=== PATIENT | female | born 1945 | race Caucasian/White ===

== ENCOUNTER 2019-07-11 07:39 | Outpatient (CLI) | payer MEDICARE, SELFPAY ==
[2019-07-11 07:56] LABS: Appearance Urine Clear (Clear); Bilirubin Urine Negative (Negative); Color Urine Yellow (Yellow); Glucose Urine UA Negative (Negative); Ketones Urine Negative (Negative); Leukocyte Esterase Ur Trace (Negative); Nitrate Urine Negative (Negative); Protein Urine Negative (Negative); Specific Grav Ur 1.015 (1.010-1.020); Urobilinogen Urine 0.2 mg/dL (0.2-1.0); pH Urine 6.5 (5.0-8.0)
[2019-07-11 08:02] LABS: Add Urine Microscopic? YES; Blood Urine Trace-lysed (Negative); RBC Urine 0-2 /hpf (0-2); WBC Urine 0-3 /hpf (0-3)
[2019-07-11 08:03] LABS: Bacteria Urine Trace /hpf; Squamous Epithelial Cell Urine Rare /hpf (Few)
[2019-07-11 08:04] LABS: Basophils Absolute Auto 0.08 K/mm3 (0.00-0.10); Basophils Percent Auto 1.1 % (0.0-1.0); Eosinophils Absolute Auto 0.35 K/mm3 (0.02-0.50); Eosinophils Percent Auto 4.9 % (1.0-6.0); Hematocrit 42.1 % (35.0-42.0); Hemoglobin 13.9 g/dL (11.7-13.8); Immature Granulocyte Absolute 0.02 K/mm3 (0.00-0.00); Immature Granulocyte Percent A 0.3 % (0.0-0.0); Lymphocytes Absolute Auto 2.28 K/mm3 (1.10-4.50); Lymphocytes Percent Auto 31.7 % (18.0-42.0); Mean Corpuscular Hemoglobin 31.2 pg (27.0-31.0); Mean Corpuscular Volume 94.4 fL (78.0-102.0); Mean Platelet Volume 11.2 fl (9.2-11.8); Monocytes Absolute Auto 0.41 K/mm3 (0.10-0.90); Monocytes Percent Auto 5.7 % (2.0-11.0); Neutrophils Absolute Auto 4.1 K/mm3 (1.7-7.2); Neutrophils Percent Auto 56.3 % (50.0-70.0); Platelet Count Result 276 K/mm3 (150-420); Red Blood Count 4.46 M/mm3 (4.20-5.40); White Blood Count 7.2 K/mm3 (4.8-10.8)
[2019-07-11 08:28] LABS: Alanine Aminotransferase 23 U/L (14-59); Albumin Level 3.5 g/dL (3.4-5.0); Alkaline Phosphatase 63 U/L (46-116); Amylase 80 U/L (25-115); Anion Gap 11.3 mmol/L (7-16); Aspartate Amino Transferase 19 U/L (15-37); Bilirubin,Total 0.5 mg/dL (0.00-1.00); Blood Urea Nitrogen 13 mg/dL (7-18); Calcium 9.2 mg/dL (8.5-10.1); Carbon Dioxide 32 mmol/L (21-32); Chloride 105 mmol/L (98-108); Cholesterol 192 mg/dL (0-200); Estimated Glomerular Filt Rate > 60; Glucose 95 mg/dL (70-99); HDL Direct 97 mg/dL (40-60); LDL Cholesterol Calculated 84 mg/dL (<130); Lipase 220 U/L (73-393); Osmolality Calculated 298 mOsm/kg (285-295); Potassium 4.3 mmol/L (3.5-5.1); Sodium 144 mmol/L (136-145); Thyroid Stimulating Hormone 1.41 uIU/mL (0.36-3.74); Triglycerides 54 mg/dL (0-150)
== END 2019-07-11 07:40 | disposition home or self-care (01) ==
PROVIDERS: PCP Internal Medicine; Visit Provider Internal Medicine
DX: R11.0 Nausea (principal); R10.9 Unspecified abdominal pain; E78.5 Hyperlipidemia, unspecified
CPT/HCPCS: 36415; 80053; 80061; 81001; 82150; 83690; 84443; 85025

== ENCOUNTER 2019-10-13 12:38 | Outpatient (CLI) | payer MEDICARE, OTHER, SELFPAY ==
--- NOTE | ~2019-10-13 | MM_ITS ---
EXAMINATION: MM screening trae BI w jace HISTORY: Screening mammogram TECHNIQUE: Craniocaudal and mediolateral oblique 3-D tomosynthesis images were obtained and synthetic 2-D images were generated. CAD analysis was submitted and interpreted. COMPARISON: 04/18/2018, 03/08/2017, 02/28/2016 bilateral digital screening mammogram examinations BREAST PARENCHYMAL COMPOSITION: The breasts are extremely dense, which lowers the sensitivity of mamm ography. FINDINGS: There is suggestion of some asymmetry and possible architectural distortion in the mid to u pper right breast on MLO view. Diagnostic right mammogram and right breast ultrasound examination are recommended. Otherwise there is no evidence of suspicious mass, calcification, or architectural distortion to sugg est malignancy in either breast. There has been no other suspicious interval change. IMPRESSION: 1. Possible architectural distortion in the mid to upper right breast on MLO view 2. Diagnostic right mammogram and right breast ultrasound examination are recommended. BI-RADS Category 0: Incomplete: Needs additional imaging evaluation. Reviewed, dictated and finalized at location A. IMPRESSION: 1. Possible architectural distortion in the mid to upper right breast on MLO vi ew 2. Diagnostic right mammogram and right breast ultrasound examination are recom mended. BI-RADS Category 0: Incomplete: Needs additional imaging evaluation.
--- NOTE | ~2019-10-13 | DEXA_ITS ---
BMD(1) Young-Adult(2) Age-Matched(3) Region (g/cm2) T-score Z-score WHO Classification L1 0.745 -3.2 -1.1 Osteoporosis L2 0.849 -3.0 -0.8 Osteoporosis L3 1.020 -1.6 0.6 Osteopenia L4 1.017 -1.6 0.6 Osteopenia L1-L4 0.923 -2.2 -0.1 Osteopenia Trend: L1-L4 Change vs Change vs Measured Age BMD(1) Baseline Previous Date ([age]) (g/cm2) (%) (%) 10[age]13/2019 [age] 0[age]923 10.4* 10.4* [birth year]2007 [age] 0[age]836 baseline - * - Indicates significant change based on 95% confidence interval. 1 - Statistically 68% of repeat scans fall within 1SD (+- 0.010 g/cm2 for AP Spine L1-L4) 2 - [place] (Combined NHANES (ages 20-30) / [place] (ages 20-40)) AP Spine Reference Population (v112) 3 - Matched for Age, Weight (females 25-100 kg), Ethnic 11 - World Health Organization - Definition of Osteoporosis and Osteopenia for Women: Normal = T-score at or above -1.0 SD; Osteopenia = T-score between -1.0 and -2.5 SD; Osteoporosis = T-score at or below -2.5 SD; (WHO definitions only apply when a young healthy Women reference database is used to determine T-scores.) Printed: 10/16/2019 9:31:21 AM (13.60)76:3.00:50.00:12.0 0.00:10.62 0.60x1.05 18.4:%Fat=19.3% 0.00:0.00 0.00:0.00 Filename: [email or web address] Scan Mode: Standard;[employer]can 37.0 [employer] [id number] BMD(1) Young-Adult(2,7) Age-Matched(3) Region (g/cm2) T-score Z-score WHO Classification Neck Left 0.699 -2.4 -0.3 Osteopenia Right 0.769 -1.9 0.2 Osteopenia Mean 0.734 -2.2 -0.1 Osteopenia Difference 0.071 0.5 0.5 - Total Left 0.748 -2.1 -0.1 Osteopenia Right 0.751 -2.0 -0.1 Osteopenia Mean 0.750 -2.0 -0.1 Osteopenia Difference 0.003 0.0 0.0 - Hip [place] Length Comparison (mm) (Right = 100.1 mm) (Mean = 101.7 mm) (Left = 100.9 mm) Trend: Total Mean Change vs Change vs Measured Age BMD(1) Baseline Previous Date (years) (g/cm2) (%) (%) 10[age]13/2019 [age] 0.750 2.3 2.3 [birth year]2007 61.3 0.733 baseline - 1 - Statistically 68% of repeat scans fall within 1SD (+- 0.010 g/cm2 for DualFemur Total) 2 - [place] (Combined NHANES (ages 20-30) / [place] (ages 20-40)) Femur Reference Population (v112) 3 - Matched for Age, Weight (females 25-100 kg), Ethnic 7 - DualFemur Total T-score difference is 0.0. Asymmetry is None. 11 - World Health Organization - Definition of Osteoporosis and Osteopenia for Women: Normal = T-score at or above -1.0 SD; Osteopenia = T-score between -1.0 and -2.5 SD; Osteoporosis = T-score at or below -2.5 SD; (WHO definitions only apply when a young healthy Women reference database is used to determine T-scores.) Printed: 10/16/2019 9:31:21 AM (13.60); Filename: [email or web address].dfx; Right Femur; 16.1:%Fat=33.2%; Neck Angle (deg)= 69; Scan Mode: Standard 37.0 uGy; Left Femur; 15.3:%Fat=33.6%; Neck Angle (deg)= 66; Scan Mode: Standard 37.0 uGy [employer] [id number] Dear Nick Zelaya, Your patient Marina Hernandez completed a BMD test on 10/13/2019 using the [employer] DXA System (analysis version: 13.60) manufactured by [employer]. The following summarizes the results of our evaluation. PATIENT BIOGRAPHICAL: Name: Marina Hernandez
== END 2019-10-13 12:39 | disposition home or self-care (01) ==
LOC: CHSIMG 12:39
PROVIDERS: PCP Internal Medicine; Visit Provider Internal Medicine
DX: Z12.31 Encounter for screening mammogram for malignant neoplasm of breast (principal); Z13.820 Encounter for screening for osteoporosis; Z78.0 Asymptomatic menopausal state
CPT/HCPCS: 77063; 77067; 77080

== ENCOUNTER 2019-10-20 09:45 | Outpatient (CLI) | payer MEDICARE, OTHER, SELFPAY ==
--- NOTE | ~2019-10-20 | MMUS_ITS ---
EXAMINATION: MM diagnostic trae RT w jace, US breast RT limited HISTORY: Possible right breast architectural distortion on screening mammogram TECHNIQUE: Additional 3-D tomosynthesis images of the right breast were performed and synthetic 2-D i mages were generated. CAD analysis was submitted and interpreted. High resolution limited right breas t ultrasound was performed. COMPARISON: 10/13/2019, 04/18/2018, 03/08/2017, 02/28/2016 FINDINGS: MAMMOGRAPHIC FINDINGS: No persistent architectural distortion is identified with spot compression of the right breast. ULTRASOUND: A hypoechoic mass with central echogenicity at the 10:00 location 5 cm from the nipple has the appear ance of an intramammary lymph node. There is a 5 mm cyst at the 12:00 location 1 cm from the nipple. IMPRESSION: 1. No mammographic or sonographic evidence of malignancy. 2. Recommend routine screening mammography in one year. BI-RADS Category 2: Benign finding(s). Reviewed, dictated and finalized at location A. IMPRESSION: 1. No mammographic or sonographic evidence of malignancy. 2. Recommend routine screening mammography in one year. BI-RADS Category 2: Benign finding(s).
== END 2019-10-20 09:46 | disposition home or self-care (01) ==
PROVIDERS: PCP Internal Medicine; Visit Provider Internal Medicine
DX: R92.8 Other abnormal and inconclusive findings on diagnostic imaging of breast (principal)
CPT/HCPCS: 76642; 77061; 77065; G0279

== ENCOUNTER 2020-01-20 01:00 | Outpatient (CLI) | payer MEDICARE, OTHER, SELFPAY ==
[2020-01-20 18:32] LABS: SARS-CoV-2 RNA PCR Negative
== END 2020-01-20 01:01 | disposition home or self-care (01) ==
LOC: ANHCOVIDDT 01:00
PROVIDERS: PCP Internal Medicine; Visit Provider Internal Medicine Gastroenterology
DX: Z01.812 Encounter for preprocedural laboratory examination (principal); Z20.828 Contact with and (suspected) exposure to other viral communicable diseases
CPT/HCPCS: 87635; C9803; U0003

== ENCOUNTER 2020-01-24 02:31 | Day surgery (SDC) | payer MEDICARE, OTHER, SELFPAY ==
[2020-01-15 12:55] VITALS: BMI 21.8
[2020-01-24 11:09] VITALS: BP 138/91; PULSE 98; RESP 18; TEMP 36.8; O2SAT 100
[2020-01-24] MEDS: LACTATED RINGERS 1,000 ML 150 ML IV CONT (11:19)
--- NOTE | 2020-01-24 11:38 | WPDANESEPPF ---
Anes - Initial Pre Proc Eval Procedure: Operation Date: 01/24/20 12:30 Proposed Procedures p Screening Colonoscopy - Delfin Wallace DO Date/Time: 01/24/20 11:38 Surgeon: Delfin Wallace DO Pre Op Diagnosis: hx of colon polyps Patient Data Age: 74 Gender: F Height: 5 ft 1 in Weight: 51.2 kg Last Vital Signs Temp 98.2 F 01/24/20 11:09 Pulse 98 01/24/20 11:09 Resp 18 01/24/20 11:09 BP 138/91 H 01/24/20 11:09 Pulse Ox 100 01/24/20 11:09 Allergies Allergy/AdvReac Type Severity Reaction Status Date / Time adhesive Allergy Mild SKIN Verified 01/24/20 11:06 BLISTERS Sulfa (Sulfonamide Allergy Unknown Hives Verified 01/24/20 11:06 Antibiotics) Home Medications Medication Instructions Recorded Confirmed Type atorvastatin 10 mg PO DAILY 01/15/20 01/24/20 History cyclosporine [Restasis] 1 drp OPHTHALMIC (EYE) BID 01/15/20 01/15/20 History vitamin D3-vitamin K2 1 tab-cap PO DAILY 01/15/20 01/15/20 History Patient hx anesthesia problems: none Family hx anesthesia problems: none PMFSH Past Medical History Medical History (Updated 01/24/20 @ 11:37 by Isma Morales MD) Arthritis GERD (gastroesophageal reflux disease) Hyperlipidemia Family History Family History (Updated 07/15/15 @ 11:59 by DOCTOR UNKNOWN) Other Cerebrovascular accident Diabetes mellitus Family history of malignant neoplasm Hypertension Social History Social History Smoking status: Never smoker Smokeless tobacco user: other Alcohol intake: former Substance use: unknown Substance use type: unknown Living arrangements: with family Spiritual care concerns: No Anes - Eval Final PreProcedure Day of Procedure 01/24/20 11:38 Informed Consent: The patient's anesthetic plan and its attendant risks and benefits were discussed with the patient/family/POA. Questions were solicited and answers provided to the satisfaction of the patient/family/POA.
--- NOTE | 2020-01-24 11:40 | WPDANESEPPF ---
Anes - Initial Pre Proc Eval Procedure: Operation Date: 01/24/20 12:30 Proposed Procedures p Screening Colonoscopy - Delfin Wallace DO Date/Time: 01/24/20 11:40 Surgeon: Delfin Wallace DO Pre Op Diagnosis: hx of colon polyps Patient Data Age: 74 Gender: F Height: 5 ft 1 in Weight: 51.2 kg Last Vital Signs Temp 98.2 F 01/24/20 11:09 Pulse 98 01/24/20 11:09 Resp 18 01/24/20 11:09 BP 138/91 H 01/24/20 11:09 Pulse Ox 100 01/24/20 11:09 Allergies Allergy/AdvReac Type Severity Reaction Status Date / Time adhesive Allergy Mild SKIN Verified 01/24/20 11:06 BLISTERS Sulfa (Sulfonamide Allergy Unknown Hives Verified 01/24/20 11:06 Antibiotics) Home Medications Medication Instructions Recorded Confirmed Type atorvastatin 10 mg PO DAILY 01/15/20 01/24/20 History cyclosporine [Restasis] 1 drp OPHTHALMIC (EYE) BID 01/15/20 01/15/20 History vitamin D3-vitamin K2 1 tab-cap PO DAILY 01/15/20 01/15/20 History Patient hx anesthesia problems: none Family hx anesthesia problems: none PMFSH Past Medical History Medical History (Updated 01/24/20 @ 11:37 by Isma Morales MD) Arthritis GERD (gastroesophageal reflux disease) Hyperlipidemia Family History Family History (Updated 07/15/15 @ 11:59 by DOCTOR UNKNOWN) Other Cerebrovascular accident Diabetes mellitus Family history of malignant neoplasm Hypertension Social History Social History Smoking status: Never smoker Smokeless tobacco user: other Alcohol intake: former Substance use: unknown Substance use type: unknown Living arrangements: with family Spiritual care concerns: No Anes - Eval Final PreProcedure Day of Procedure 01/24/20 11:40 Patient weight: normal Heart: regular rate and rhythm Lungs: clear to auscultation Airway: Mallampati scale class II Neurological: alert and oriented Last oral intake: >/= 8 hours ASA classification: II Emergent: no Anesthetic plan: proceed Anesthesia type and monitoring: general GIVS and standard monitoring Informed Consent: The patient's anesthetic plan and its attendant risks and benefits were discussed with the patient/family/POA. Questions were solicited and answers provided to the satisfaction of the patient/family/POA.
--- NOTE | 2020-01-24 11:47 | PM.IMHP ---
H&P: HPI History of Present Illness Date/Time: 01/24/20 11:47 Chief complaint: hx of colon polyps Narrative: Reason for visit colonoscopy. This very pleasant lady seen in consultation request of the primary physician. Impression: Screening and surveillance colonoscopy. The patient's history adenomatous colon polyps. Chronic idiopathic constipation / IBS with constipation. Hyperlipidemia. Osteoporosis. History retinal detachment. Carotid artery stenosis. Recommendation: Colonoscopy. History: This very pleasant lady's here for screening and surveillance colonoscopy. She has a history adenomatous colon polyps. She does have a history of chronic idiopathic constipation and IBS with constipation. She has a bowel movement about every other day to every day. She has significant straining. She takes magnesium and potassium supplementation and Senokot at bedtime. She denies any hematochezia, melena or acholic stools. The patient is here for screening and surveillance colonoscopy. Physical examination: General: very pleasant patient in no acute distress. HEENT: Head was normocephalic sclerae is clear mouth without masses neck was supple. Heart: Rate rhythm regular without S3 or S4. Lungs: CTA. Abdomen: Soft with no guarding or rigidity. Bowel sounds were active. Neurologic: Cranial nerves 2 through 12 intact. No focal defects. No clonus. Musculoskeletal system: Revealed no joint tenderness or swelling no muscle atrophy. Extremities: Reveal no significant edema. Skin: Warm and dry with normal turgor. Mental status: intact. Patient is alert and oriented. Review of Systems Review of Systems: All systems reviewed & are unremarkable except as noted in HPI and below PMFSH Past Medical History Medical History (Updated 01/24/20 @ 11:46 by Delfin Wallace DO) Adenomatous colon polyp Arthritis Carotid artery stenosis Chronic idiopathic constipation GERD (gastroesophageal reflux disease) Hyperlipidemia IBS (irritable bowel syndrome) Osteoporosis Surgical History Surgical History (Updated 01/24/20 @ 11:46 by Delfin Wallace DO) H/O cataract removal with insertion of prosthetic lens H/O colonoscopy Family History Family History (Updated 07/15/15 @ 11:59 by DOCTOR UNKNOWN) Other Cerebrovascular accident Diabetes mellitus Family history of malignant neoplasm Hypertension Social History Social History Smoking status: Never smoker Smokeless tobacco user: other Alcohol intake: former Substance use: unknown Substance use type: unknown Living arrangements: with family Spiritual care concerns: No Meds Home Medications and Allergies Home Medications Medication Instructions Recorded Confirmed Type atorvastatin 10 mg PO DAILY 01/15/20 01/24/20 History cyclosporine [Restasis] 1 drp OPHTHALMIC (EYE) BID 01/15/20 01/15/20 History vitamin D3-vitamin K2 1 tab-cap PO DAILY 01/15/20 01/15/20 History Allergies Allergy/AdvReac Type Severity Reaction Status Date / Time adhesive Allergy Mild SKIN Verified 01/24/20 11:06 BLISTERS Sulfa (Sulfonamide Allergy Unknown Hives Verified 01/24/20 11:06 Antibiotics) Vital Signs Vital Signs - 24 hr 01/24/20 11:09 Temperature 36.8 C Pulse Rate 98 Respiratory Rate 18 Blood Pressure 138/91 H Pulse Oximetry 100
[2020-01-24 12:10] VITALS: BP 90/60; PULSE 62; RESP 18; O2SAT 100
[2020-01-24 12:20] VITALS: BP 102/62; PULSE 74; RESP 16; O2SAT 100
[2020-01-24 12:30] VITALS: BP 114/63; PULSE 57; RESP 16; O2SAT 100
== END 2020-01-24 12:56 | disposition home or self-care (01) ==
PROVIDERS: PCP Internal Medicine; Visit Provider Internal Medicine Gastroenterology
PROC: 0DJD8ZZ Inspection of Lower Intestinal Tract, Via Natural or Artificial Opening Endoscopic (ICD-10-PCS; CPT 45378; principal; 2020-01-24 12:30)
DX: Z12.11 Encounter for screening for malignant neoplasm of colon (principal); K57.30 Diverticulosis of large intestine without perforation or abscess without bleeding; K63.89 Other specified diseases of intestine; Z86.010 Personal history of colon polyps; E78.5 Hyperlipidemia, unspecified; K21.9 Gastro-esophageal reflux disease without esophagitis
CPT/HCPCS: G0105; J2704; J7120

== ENCOUNTER 2020-05-10 10:15 | Outpatient (CLI) | payer MEDICARE, OTHER, SELFPAY ==
[2020-05-10 10:30] LABS: Basophils Absolute Auto 0.13 K/mm3 (0.00-0.10); Basophils Percent Auto 1.5 % (0.0-1.0); Eosinophils Absolute Auto 0.28 K/mm3 (0.02-0.50); Eosinophils Percent Auto 3.2 % (1.0-6.0); Hemoglobin 13.5 g/dL (11.7-13.8); Immature Granulocyte Absolute 0.02 K/mm3 (0.00-0.00); Immature Granulocyte Percent A 0.2 % (0.0-0.0); Lymphocytes Absolute Auto 1.99 K/mm3 (1.10-4.50); Lymphocytes Percent Auto 22.5 % (18.0-42.0); Mean Corpuscular HGB Conc 32.9 g/dL (32.0-36.0); Mean Corpuscular Hemoglobin 31.3 pg (27.0-31.0); Mean Corpuscular Volume 94.9 fL (78.0-102.0); Mean Platelet Volume 11.4 fl (9.2-11.8); Monocytes Percent Auto 5.6 % (2.0-11.0); Neutrophils Absolute Auto 5.9 K/mm3 (1.7-7.2); Platelet Count Result 327 K/mm3 (150-420); Red Blood Count 4.32 M/mm3 (4.20-5.40); Red Cell Distribution Width 13.6 % (11.6-14.4); White Blood Count 8.9 K/mm3 (4.8-10.8)
--- NOTE | 2020-05-10 10:30 | ECG_ITS ---
Measurements Intervals [place] Rate: 61 P: 83 TX: 177 QRS: -59 QRSD: 121 T: 105 QT: 435 QTc: 439 Interpretive Statements SINUS RHYTHM LEFT AXIS DEVIATION INCOMPLETE LEFT BUNDLE BRANCH BLOCK ANTEROSEPTAL INFARCT, AGE INDETERMINATE ST-T WAVE ABNORMALITY IN HIGH LATERAL LEADS- CONSIDER ISCHEMIA BASELINE WANDER- I ABNORMAL ECG Electronically Signed On 05-10-2020 11:58:53 CDT by Howie Fu D.O.
--- NOTE | 2020-05-10 11:00 | ECHO_ITS ---
Patient Info Name: Marina Hernandez Age: 74 years : 1945 Gender: Female Ht: 61 in Wt: 116 lbs BSA: 1.51 m2 HR: 72 bpm BP: 133 / 79 mmHg Heart Rhythm: Sinus Rhythm Technical Quality: Good Exam Date: 05/10/2020 10:36 AM Exam Location: [facility] Patient Status: Outpatient Admit Date: 05/10/2020 Staff Ordering Physician: Nick Zelaya MD Rerolling Machine Operator: Radha Lewis RDCS Attending Provider: Nick Zelaya MD Exam Type: CA echo doppler color flow Study Info Indications R94.31 - Abnormal electrocardiogram ECG EKG Complete two-dimensional, color flow and Doppler transthoracic echocardiogram is performed. Strain analysis performed. History/Risk Factors Hypertension: No Dyslipidemia: Yes Congenital Heart Disease (CHD): No Peripheral Arterial Disease (PAD): No Myocardial Infarction (NH): No Chronic Lung Disease: No Obesity: No Renal Disease: No Coronary Artery Disease (CAD) No Congestive Heart Failure (CHF): No Cardiomyopathy/LV Systolic Dysfunction: No Diabetes Mellitus: No COPD: No Tobacco Use: Never Cerebrovascular Disease: No Deep Vein Thrombosis (DVT): None Dialysis: None Frailty Scale (CSHA): 1: Very Fit Cardiac Arrest: No Summary 1. Complete two-dimensional, color flow and Doppler transthoracic echocardiogram is performed. 2. Left ventricular chamber dimension is normal. 3. Left ventricular systolic function is normal, estimated at 60-65%. 4. The left ventricular diastolic function is grade I diastolic dysfunction. 5. E/e' 8 is minimally elevated. 6. Global longitudinal strain is abnormal at -15.5%. 7. There is trace tricuspid valve regurgitation. 8. No pulmonary hypertension, estimated pulmonary arterial systolic pressure is 27 mmHg. Left Ventricle E/e' 8 is minimally elevated. Global longitudinal strain is abnormal at -15.5%. Left ventricular chamber dimension is normal. Left ventricular systolic function is normal, estimated at 60-65%. The left ventricular diastolic function is grade I diastolic dysfunction. Right Ventricle Right ventricular chamber dimension is normal. Right ventricular systolic function is normal. Left Atria Left atrial chamber dimension is normal. Right Atria Right atrial chamber dimension is normal. Aortic Valve The aortic valve is trileaflet. There is no aortic valve stenosis. There is no aortic valve regurgitation. Pulmonic Valve There is no pulmonic regurgitation. Mitral Valve There is no mitral valve stenosis. There is no mitral valve regurgitation. Tricuspid Valve There is trace tricuspid valve regurgitation. No pulmonary hypertension, estimated pulmonary arterial systolic pressure is 27 mmHg. Pericardium/Pleural There is no pericardial effusion. Inferior Vena Cava Normal inferior vena cava with >50% collapse upon inspiration consistent with normal right atrial pressure, 5 mmHg. Aorta The aortic root size at the sinus of Valsalva is normal. Left Ventricular Outflow Tract Name Value Normal LVOT 2D LVOT Diameter 1.9 cm LVOT Doppler
[2020-05-10 11:41] LABS: Alanine Aminotransferase 27 U/L (14-59); Albumin Level 3.8 g/dL (3.4-5.0); Alkaline Phosphatase 72 U/L (46-116); Anion Gap 9 mmol/L (8-16); Aspartate Amino Transferase 19 U/L (15-37); Bilirubin,Total 0.6 mg/dL (0.00-1.00); Blood Urea Nitrogen 13 mg/dL (7-18); Calcium 9.4 mg/dL (8.5-10.1); Carbon Dioxide 31 mmol/L (21-32); Chloride 103 mmol/L (98-108); Cholesterol 195 mg/dL (0-200); Estimated Glomerular Filt Rate > 60; Glucose 96 mg/dL (70-99); HDL Direct 107 mg/dL (40-60); LDL Cholesterol Calculated 73 mg/dL (<130); Osmolality Calculated 296 mOsm/kg (285-295); Potassium 4.3 mmol/L (3.5-5.1); Sodium 143 mmol/L (136-145); Thyroid Stimulating Hormone 1.08 uIU/mL (0.36-3.74); Total Protein 7.4 g/dL (6.4-8.2); Triglycerides 74 mg/dL (0-150)
== END 2020-05-10 10:16 | disposition home or self-care (01) ==
PROVIDERS: PCP Internal Medicine; Visit Provider Internal Medicine
DX: R94.31 Abnormal electrocardiogram [ECG] [EKG] (principal); E78.5 Hyperlipidemia, unspecified; R01.1 Cardiac murmur, unspecified
CPT/HCPCS: 36415; 80053; 80061; 84443; 85025; 93005; 93306

== ENCOUNTER 2020-05-14 22:48 | Emergency (ER) | payer MEDICARE, OTHER, SELFPAY ==
[2020-05-14 23:00] VITALS: BP 166/106; PULSE 78; RESP 20; TEMP 36.6; O2SAT 99
--- NOTE | 2020-05-14 23:14 | ED.WOUNDLAC ---
HPI - Wound/Laceration General Chief Complaint: Wound/Laceration Stated Complaint: face injury Source: patient Mode of arrival: ambulatory Limitations: no limitations History of Present Illness HPI narrative: Patient comes in with bleeding from wound on her left lateral face. She was at her primary care physicians office today, and had a lesion on her left lateral face removed. The wound was then cauterized with silver nitrate or similar substance. This procedure was done at approximately 1:15 pm. She did ok until 8pm when it started to bleed. It has been bleeding since that time. She comes in now because of continued bleeding. This is not severe, but it is continual, and has gone on since 8pm at a good rate. Holding pressure did not decrease the bleeding at home. She comes in because of the continual bleeding. Related Data Home Medications Medication Instructions Recorded Confirmed atorvastatin 10 mg PO DAILY 01/15/20 05/14/20 cyclosporine [Restasis] 1 drp OPHTHALMIC (EYE) BID 01/15/20 05/14/20 vitamin D3-vitamin K2 1 tab-cap PO DAILY 01/15/20 05/14/20 Allergies Allergy/AdvReac Type Severity Reaction Status Date / Time adhesive Allergy Mild SKIN Verified 01/24/20 11:06 BLISTERS Sulfa (Sulfonamide Allergy Unknown Hives Verified 01/24/20 11:06 Antibiotics) Review of Systems Constitutional: Constitutional: Reports no additional constitutional complaints Eyes: Eyes: Reports no additional eye complaints ENT: Reports system reviewed and no additional complaints, except as documented Cardiovascular: Cardiovascular: Reports no additional cardiovascular complaints Respiratory: Respiratory: Reports no additional respiratory complaints Gastrointestinal: Gastrointestinal: Reports no additional gastrointestinal complaints Genitourinary: Genitourinary: Reports no additional female genitourinary complaints Musculoskeletal: Musculoskeletal: Reports no additional musculoskeletal complaints Integumentary/Breasts: Skin/Breast: Reports system reviewed and no additional complaints, except as docu Neurologic: Reports system reviewed and no additional complaints, except as documented Psychiatric: Psychiatric: Reports no additional psychiatric complaints Endocrine: Endocrine: Reports no additional endocrine complaints Hematologic/Lymphatic: Hematologic/Lymphatic: Reports no additional hematologic/lymphatic complaints Allergic/Immunologic: Allergic/Immunologic: Reports no additional allergic/immunologic complaints PMFSH Past Medical History Medical History Adenomatous colon polyp Arthritis Carotid artery stenosis Chronic idiopathic constipation Fracture, ankle Fracture, humerus Fx wrist GERD (gastroesophageal reflux disease) Hyperlipidemia IBS (irritable bowel syndrome) Osteoporosis Surgical History Surgical History H/O cataract removal with insertion of prosthetic lens H/O colonoscopy Family History Family History Other Cerebrovascular accident Diabetes mellitus Family history of malignant neoplasm Hypertension Social History Social History Smoking status: Never smoker Smokeless tobacco user: other Alcohol intake: former Substance use: unknown Substance use type: unknown Spiritual care concerns: No Exam Const: General: no acute distress Orientation/consciousness: patient oriented x3 HENMT: Ears: external ears normal and TM's normal bilaterally General nose exam: Normal external nose present Mouth: Yes Normal oral and palatal mucosa present and Yes moist mucous membranes Throat: posterior oropharynx normal Other: bleeding from wound on left lateral face at a steady rate. Eyes: Conjunctivae: conjunctivae normal Neck: Neck: normal visual inspection Chest: Ches
[2020-05-14] MEDS: SILVER NITRATE (*SP) STICK 3 EACH TOPICAL (23:20)
[2020-05-14] MEDS: LIDO 1%/EPINEPHRINE 1:100,000 20 ML VIAL 3 ML INFILTRATE (23:20)
[2020-05-14 23:50] VITALS: BP 141/86; PULSE 85; RESP 18; TEMP 36.1; O2SAT 99
== END 2020-05-14 23:51 | disposition home or self-care (01) ==
PROVIDERS: Emergency Provider Emergency Medicine; PCP Internal Medicine
DX: S01.412A Laceration without foreign body of left cheek and temporomandibular area, initial encounter (principal)
CPT/HCPCS: 12011; 99282

== ENCOUNTER 2020-10-24 12:36 | Outpatient (CLI) | payer MEDICARE, OTHER, SELFPAY ==
--- NOTE | ~2020-10-24 | MM_ITS ---
EXAMINATION: MM screening trae BI w jace HISTORY: Screening TECHNIQUE: Craniocaudal and mediolateral oblique 3-D tomosynthesis images were obtained and synthetic 2-D images were generated. CAD analysis was submitted and interpreted. COMPARISON: Comparison to multiple prior studies sequentially, with oldest reviewed study dated 07/2016. BREAST PARENCHYMAL COMPOSITION: The breasts are heterogeneously dense, which may obscure small masses . FINDINGS: There is no evidence of suspicious mass, calcification, or architectural distortion to sugg est malignancy in either breast. There has been no suspicious interval change. IMPRESSION: 1. No mammographic evidence of malignancy. 2. Recommend routine screening mammography in one year. BI-RADS Category 1: Negative Reviewed, dictated and finalized at location A.
== END 2020-10-24 12:37 | disposition home or self-care (01) ==
LOC: CHSIMG 12:38
PROVIDERS: PCP Internal Medicine; Visit Provider Internal Medicine
DX: Z12.31 Encounter for screening mammogram for malignant neoplasm of breast (principal)
CPT/HCPCS: 77063; 77067

== ENCOUNTER 2021-04-04 07:35 | Outpatient (CLI) | payer MEDICARE, OTHER, SELFPAY ==
--- NOTE | ~2021-04-04 | XR_ITS ---
EXAMINATION: XR barium swallow EXAM DATE: 04/04/2021 08:37 INDICATION: Persistent sore throat. States white plaque at back of throat. TECHNIQUE: Standard thick followed by thin contrast barium esophagram examination was performed by Dr Rickey Tijerina, radiologist. Pulsed dose reduction fluoroscopy was used with fluoroscopic time of 0.5 minutes. The DAP for this procedure was 0.7 Gycm2. A total of 662 images obtained for the exam. T here is no prior study for comparison. FINDINGS: The pharynx is symmetric and without evidence of mass lesion or mucosal irregularity. No la ryngeal penetration. There is no esophageal stricture or mass identified. There are no esophageal di verticula. Gastroesophageal junction is normal in appearance. IMPRESSION: Normal exam. Reviewed, dictated and finalized at location B. EL COUNSELOR IMPRESSION: Normal exam.
[2021-04-04 07:53] LABS: Add Urine Microscopic? YES; Appearance Urine Clear (Clear); Bilirubin Urine Negative (Negative); Blood Urine 1+ (Negative); Color Urine Light Yellow (Yellow); Glucose Urine UA Negative (Negative); Ketones Urine Negative (Negative); Leukocyte Esterase Ur Negative (Negative); Nitrate Urine Negative (Negative); Protein Urine Negative (Negative); Specific Grav Ur 1.015 (1.010-1.020); Urobilinogen Urine 0.2 mg/dL (0.2-1.0)
[2021-04-04 07:54] LABS: Basophils Absolute Auto 0.08 K/mm3 (0.00-0.10); Eosinophils Absolute Auto 0.22 K/mm3 (0.02-0.50); Eosinophils Percent Auto 2.9 % (1.0-6.0); Hematocrit 42.2 % (35.0-42.0); Hemoglobin 13.8 g/dL (11.7-13.8); Immature Granulocyte Absolute 0.02 K/mm3 (0.00-0.00); Immature Granulocyte Percent A 0.3 % (0.0-0.0); Lymphocytes Absolute Auto 1.98 K/mm3 (1.10-4.50); Lymphocytes Percent Auto 25.7 % (18.0-42.0); Mean Corpuscular HGB Conc 32.7 g/dL (32.0-36.0); Mean Corpuscular Hemoglobin 30.7 pg (27.0-31.0); Mean Corpuscular Volume 93.8 fL (78.0-102.0); Monocytes Absolute Auto 0.38 K/mm3 (0.10-0.90); Monocytes Percent Auto 4.9 % (2.0-11.0); Neutrophils Percent Auto 65.2 % (50.0-70.0); Platelet Count Result 292 K/mm3 (150-420); Red Cell Distribution Width 13.8 % (11.6-14.4); White Blood Count 7.7 K/mm3 (4.8-10.8)
[2021-04-04 07:57] LABS: Bacteria Urine Trace /hpf; RBC Urine 0-2 /hpf (0-2); Squamous Epithelial Cell Urine Rare /hpf (Few); WBC Urine None seen /hpf (0-3)
[2021-04-04 08:37] LABS: Alanine Aminotransferase 25 U/L (14-59); Albumin Level 3.6 g/dL (3.4-5.0); Alkaline Phosphatase 63 U/L (46-116); Anion Gap 9 mmol/L (8-16); Aspartate Amino Transferase 13 U/L (15-37); Bilirubin,Total 0.6 mg/dL (0.00-1.00); Blood Urea Nitrogen 11 mg/dL (7-18); Carbon Dioxide 32 mmol/L (21-32); Chloride 103 mmol/L (98-108); Cholesterol 195 mg/dL (0-200); Estimated Glomerular Filt Rate > 60; Glucose 97 mg/dL (70-99); HDL Direct 106 mg/dL (40-60); LDL Cholesterol Calculated 74 mg/dL (<130); Osmolality Calculated 297 mOsm/kg (285-295); Sodium 144 mmol/L (136-145); Thyroid Stimulating Hormone 1.35 uIU/mL (0.36-3.74); Total Protein 6.8 g/dL (6.4-8.2); Triglycerides 74 mg/dL (0-150)
== END 2021-04-04 07:36 | disposition home or self-care (01) ==
LOC: CHSIMG 07:40
PROVIDERS: PCP Internal Medicine; Visit Provider Internal Medicine
DX: J02.9 Acute pharyngitis, unspecified (principal); E78.5 Hyperlipidemia, unspecified
CPT/HCPCS: 36415; 74220; 80053; 80061; 81001; 84443; 85025

== ENCOUNTER 2021-04-07 09:49 | Outpatient (CLI) | payer MEDICARE, OTHER, SELFPAY ==
[2021-04-07 10:02] LABS: Appearance Urine Clear (Clear); Bilirubin Urine Negative (Negative); Color Urine Light Yellow (Yellow); Glucose Urine UA Negative (Negative); Ketones Urine Negative (Negative); Leukocyte Esterase Ur Negative (Negative); Nitrate Urine Negative (Negative); Protein Urine Negative (Negative); Specific Grav Ur <= 1.005 (1.010-1.020); Urobilinogen Urine 0.2 mg/dL (0.2-1.0)
[2021-04-07 10:14] LABS: Add Urine Microscopic? YES; Bacteria Urine Trace /hpf; Blood Urine Trace-Intact (Negative); RBC Urine 0-2 /hpf (0-2); Squamous Epithelial Cell Urine Rare /hpf (Few); WBC Urine None seen /hpf (0-3)
== END 2021-04-07 09:50 | disposition home or self-care (01) ==
PROVIDERS: PCP Internal Medicine; Visit Provider Internal Medicine
DX: R31.29 Other microscopic hematuria (principal)
CPT/HCPCS: 81001; 88108; 88112

== ENCOUNTER 2021-09-19 02:31 | Day surgery (SDC) | payer MEDICARE, OTHER, SELFPAY ==
[2021-09-05 14:42] VITALS: BMI 20.8
[2021-09-19 12:05] VITALS: BP 154/96; PULSE 81; RESP 78; TEMP 36.6; O2SAT 99
--- NOTE | 2021-09-19 12:06 | P.PNAN_ITS ---
Anes - Initial Pre Proc Eval Procedure: Operation Date: 09/19/21 13:00 Proposed Procedures p Esophagogastroduodenoscopy - Delfin Rivera MD Date/Time: 09/19/21 12:06 Surgeon: Delfin Rivera MD Pre Op Diagnosis: GERD, throat pain Patient Data Age: 75 Gender: F Height: 1.55 m Weight: 50 kg Allergies Allergy/AdvReac Type Severity Reaction Status Date / Time adhesive Allergy Mild SKIN Verified 09/19/21 12:04 BLISTERS Sulfa (Sulfonamide Allergy Unknown Hives Verified 09/19/21 12:04 Antibiotics) Home Medications Medication Instructions Recorded Confirmed Type atorvastatin 10 mg tablet 10 mg PO DAILY 01/15/20 09/05/21 History vitamin D3-vitamin K2 1 tab-cap PO DAILY 01/15/20 09/05/21 History omega-3 fatty acids 1,000 mg 1,000 mg PO DAILY 09/01/21 09/05/21 History capsule omeprazole 20 mg capsule,delayed 20 mg PO DAILY 6 weeks #42 caps 09/01/21 09/05/21 Rx release Lactobacillus 1 cap PO DAILY 09/05/21 09/05/21 History acidophilus-Bifidobac.animalis 2.5 billion cell capsule (Daily Probiotic) Patient hx anesthesia problems: none Family hx anesthesia problems: none Results Review: All pre-operative results and documents have been reviewed as part of the pre- operative evaluation. [facility] Past Medical History Medical History Adenomatous colon polyp Arthritis Carotid artery stenosis Chronic idiopathic constipation Fracture, ankle Fracture, humerus Fx wrist GERD (gastroesophageal reflux disease) Hyperlipidemia IBS (irritable bowel syndrome) Osteoporosis Surgical History Surgical History H/O cataract removal with insertion of prosthetic lens H/O colonoscopy Family History Family History Father Hypertension Mother Asthma FH: kidney cancer Sibling Alcoholism Grandparent Alcoholism Other Cerebrovascular accident Diabetes mellitus Family history of malignant neoplasm Social History Social History Smoking status: Never smoker Smokeless tobacco user: other Alcohol intake: never Substance use: never Substance use type: does not use Living arrangements: with family Spiritual care concerns: No Anes - Eval Final PreProcedure Day of Procedure 09/19/21 12:06 Results Review: All pre-operative results and documents have been reviewed as part of the pre- operative evaluation. Informed Consent: The patient's anesthetic plan and its attendant risks and benefits were discussed with the patient/family/POA. Questions were solicited and answers provided to the satisfaction of the patient/family/POA.
[2021-09-19] MEDS: LACTATED RINGERS 1,000 ML 150 ML IV CONT (12:10)
--- NOTE | 2021-09-19 12:10 | WPDHPUPDATE1 ---
History and Physical Update Update Date/Time: 09/19/21 12:10 History and Physical has been reviewed, including an updated exam of the patient. There are NO changes in the patient's condition. Risks, benefits, and alternatives have been discussed and questions answered. Patient agrees to proceed with procedure.
[2021-09-19 13:23] VITALS: BP 98/54; PULSE 61; RESP 20; O2SAT 100
[2021-09-19 13:33] VITALS: BP 94/55; PULSE 61; RESP 16; O2SAT 100
[2021-09-19 13:43] VITALS: BP 107/69; PULSE 58; RESP 21; O2SAT 100
== END 2021-09-19 13:58 | disposition home or self-care (01) ==
PROVIDERS: PCP Internal Medicine; Visit Provider Internal Medicine Gastroenterology
PROC: 0DJ08ZZ Inspection of Upper Intestinal Tract, Via Natural or Artificial Opening Endoscopic (ICD-10-PCS; CPT 43235; principal; 2021-09-19 13:00)
DX: R07.0 Pain in throat (principal); K21.00 Gastro-esophageal reflux disease with esophagitis, without bleeding; I25.10 Atherosclerotic heart disease of native coronary artery without angina pectoris; E78.5 Hyperlipidemia, unspecified; M81.0 Age-related osteoporosis without current pathological fracture; K58.1 Irritable bowel syndrome with constipation; M19.90 Unspecified osteoarthritis, unspecified site
CPT/HCPCS: 43235; 87081; J2704; J7120

== ENCOUNTER 2021-12-05 12:35 | Outpatient (CLI) | payer MEDICARE, OTHER, SELFPAY ==
--- NOTE | ~2021-12-05 | DEXA_ITS ---
Bone Density Report Name: JAXON GEORGE Age: 76 Sex: Female Ethnicity: White Date of : 1945 Indication: postmenopausal; screening for osteoporosis; height loss; inflammatory bowel disease; prior fracture; hysterectomy; Referring Provider: Nick Zelaya Study: Bone densitometry was performed. Exam Date: December 05, 2021 Accession number: [id number] Bone Density: Region BMD T-score Z-score Classification AP Spine(L1-L4) 0.809 -2.2 0.3 Osteopenia Femoral Neck (Left) 0.574 -2.5 -0.4 Osteoporosis Total Hip (Left) 0.723 -1.8 0.0 Osteopenia Femoral Neck (Right) 0.596 -2.3 -0.2 Osteopenia Total Hip (Right) 0.746 -1.6 0.2 Osteopenia Femoral Neck Mean 0.585 -2.4 -0.3 Osteopenia Total Hip Mean 0.734 -1.7 0.1 Osteopenia World Health Organization criteria for BMD impression classify patients as: Normal (T-score at or above -1.0), Osteopenia (T-score between -1.0 and -2.5), or Osteoporosis (T-score at or below -2.5). 10-year Fracture Risk: FRAX not reported because: Some T-score for Spine Total or Hip Total or Femoral Neck at or below -2.5 Treated for osteoporosis Clinical Information Provided by Patient: Has had a low trauma fracture Is being treated for osteoporosis Has used the following medications: Vitamin D, Calcium, multi vit Has the following medical conditions: Inflammatory bowel diseases, Hysterectomy Patient maximum height was 62 Menopause Age: 43 Onset of menses at age 14 Number of children 1 Impression: The patient has established osteoporosis, based on the Left Femoral Neck T-score and the existence of a prior fracture. The patient has risk factors, including: previous fracture. Discussion: It is important to ask patients whether they are taking their medications and to encourage continued and appropriate compliance with their osteoporosis therapies to reduce fracture risk. It is also important to review their risk factors and encourage appropriate calcium and vitamin D intakes, exercise, fall prevention and other lifestyle measures. Follow-Up: Consider a repeat BMD and Vertebral Fracture Assessment (VFA) exam in 2 years or sooner if medically necessary, to reassess this patient's status. Reported by: Dr. Franklin Qureshi on 12/05/2021 1:17:00 PM. Reviewed, dictated and finalized at location A. [facility]
--- NOTE | ~2021-12-05 | MM_ITS ---
EXAMINATION: MM screening trae BI w jace HISTORY: Screening TECHNIQUE: Craniocaudal and mediolateral oblique 3-D tomosynthesis images were obtained and synthetic 2-D images were generated. CAD analysis was submitted and interpreted. COMPARISON: Comparison to multiple prior studies sequentially, with oldest reviewed study dated 03/08. BREAST PARENCHYMAL COMPOSITION: The breasts are extremely dense, which lowers the sensitivity of mamm ography FINDINGS: There is no evidence of suspicious mass, calcification, or architectural distortion to sugg est malignancy in either breast. There has been no suspicious interval change. IMPRESSION: 1. No mammographic evidence of malignancy. 2. Recommend routine screening mammography in one year. BI-RADS Category 1: Negative Reviewed, dictated and finalized at location A.
== END 2021-12-05 12:36 | disposition home or self-care (01) ==
LOC: CHSIMG 12:39
PROVIDERS: PCP Internal Medicine; Visit Provider Internal Medicine
DX: M81.0 Age-related osteoporosis without current pathological fracture (principal); Z12.31 Encounter for screening mammogram for malignant neoplasm of breast
CPT/HCPCS: 77063; 77067; 77080

== ENCOUNTER 2022-12-10 13:08 | Outpatient (CLI) | payer MEDICARE, OTHER, SELFPAY ==
--- NOTE | ~2022-12-10 | MM_ITS ---
EXAMINATION: MM screening trae BI w jace HISTORY: Screening TECHNIQUE: Craniocaudal and mediolateral oblique 3-D tomosynthesis images were obtained and synthetic 2-D images were generated. CAD analysis was submitted and interpreted. COMPARISON: Comparison to multiple prior studies sequentially, with oldest reviewed study dated 04/18. BREAST PARENCHYMAL COMPOSITION: The breasts are extremely dense, which lowers the sensitivity of mamm ography. FINDINGS: There is no evidence of suspicious mass, calcification, or architectural distortion to sugg est malignancy in either breast. There has been no suspicious interval change. IMPRESSION: 1. No mammographic evidence of malignancy. 2. Recommend routine screening mammography in one year. BI-RADS Category 1: Negative Reviewed, dictated and finalized at location A.
== END 2022-12-10 13:09 | disposition home or self-care (01) ==
LOC: CHSIMG 13:09
PROVIDERS: PCP Internal Medicine; Visit Provider Internal Medicine
DX: Z12.31 Encounter for screening mammogram for malignant neoplasm of breast (principal)
CPT/HCPCS: 77063; 77067

== ENCOUNTER 2023-03-25 07:28 | Outpatient (CLI) | payer MEDICARE, SELFPAY ==
--- NOTE | ~2023-03-25 | MR_ITS ---
MRI of the brain Clinical History: Cognitive impairment Technique: Axial and sagittal T1-weighted images were acquired. These were followed by axial T2-weigh fabricio, diffusion weighted, gradient, and FLAIR images. Findings: There is no acute infarct, intracranial hemorrhage, or mass lesion. There are moderate mortgage loan processor parveen microvascular ischemic changes throughout the periventricular white matter bilaterally. Ventricles and subarachnoid spaces are mildly dilated. Orbits are unremarkable. Paranasal sinuses and mastoid air cells are clear. Major intracranial flow voids are intact. Sagittal midline structures are intact. IMPRESSION: No acute infarct, intracranial hemorrhage, or mass lesion. Moderate chronic progressive ischemic change and mild generalized atrophy. Reviewed, dictated and finalized at [facility]. BAKER MACHINE
--- NOTE | ~2023-03-25 | US_ITS ---
EXAMINATION: US carotid duplex BI DATE: 03/25/2023 08:44 INDICATION: Carotid stenosis TECHNIQUE: Grayscale, color Doppler, and pulsed Doppler images of the cervical carotid arteries were obtained. The degree of vessel stenosis is placed in one of the following categories: normal, <50%, 5 0-69%, >=70% but less than near-occlusion, near-occlusion, or total occlusion. Note that percent sten osis relative to normal distal artery lumen diameter is indirectly measured from velocity measurement s as described by London, et al. Radiology 2003; 229:340-346. COMPARISON: None. FINDINGS: RIGHT: The right common carotid artery (CCA) peak systolic velocity (PSV) is 86 cm/s. The right internal car otid artery (ICA) PSV is 94 cm/s. The right ICA end-diastolic velocity (EDV) is 13 cm/s. The right IC A/CCA PSV ratio is 1.1. Grayscale and color Doppler images yield an estimate of 0% diameter reduction from plaque in the ICA. The external carotid artery (ECA) PSV is 84 cm/s. There is antegrade flow in the right vertebral artery. LEFT: The left CCA PSV is 85 cm/s. The left ICA PSV is 83 cm/s. The left ICA EDV is 29 cm/s. The left ICA/C CA PSV ratio is 1.0. Grayscale and color Doppler images yield an estimate of less than 50% diameter r eduction from plaque in the ICA. The ECA PSV is 57 cm/s. There is antegrade flow in the left vertebra l artery. IMPRESSION: 1. No stenosis in the right internal carotid artery. 2. Less than 50% stenosis in the left internal carotid artery. Reviewed, dictated and finalized at Location A. Reviewed, dictated and finalized at location L. MENT CLERK
== END 2023-03-25 07:29 | disposition home or self-care (01) ==
LOC: CHSIMG 07:33
PROVIDERS: PCP Internal Medicine; Visit Provider Internal Medicine
DX: G31.84 Mild cognitive impairment of uncertain or unknown etiology (principal); I65.22 Occlusion and stenosis of left carotid artery
CPT/HCPCS: 70551; 93880

== ENCOUNTER 2024-02-09 12:54 | Emergency (ER) | payer MEDICARE, SELFPAY ==
--- NOTE | ~2024-02-09 | XR_ITS ---
XR wrist RT min 3V Ordering provider: Mitchell Nash MD History: . accidental fall RT WRIST PAIN . Comparison: October 08, 2015 FINDINGS: BONES: Comminuted fractures seen in the distal radius with posteriorly displaced distal fragment. Александр carlisle is removed in the interval. Fracture of the ulnar styloid is also noted JOINT SPACES: Narrowing of the radiocarpal joint. Osteoarthritic changes of the first carpometacarpal joint. SOFT TISSUES: Normal. IMPRESSION: Comminuted fracture of the distal radius. Clinical correlation and follow-up advised. Reviewed, dictated and finalized at location A. UNCH OPERATOR IMPRESSION: Comminuted fracture of the distal radius. Clinical correlation and follow-up ad vised.
[2024-02-09 12:55] VITALS: BP 164/82; PULSE 76; RESP 16; TEMP 36.7; O2SAT 98
--- NOTE | 2024-02-09 13:03 | ED.UPPEXIN ---
HPI - Extremity Injury (Upper) General Chief Complaint: Extremity Injury, Upper Stated Complaint: RT WRIST INJURY Time Seen by Provider: 02/09/24 13:03 Source: patient Mode of arrival: ambulatory Limitations: no limitations History of Present Illness HPI narrative: 78-year-old female with a history of arthritis, dyslipidemia, constipation, IBS, GERD, CAD, prior history of left wrist fracture slipped on some water in the garage and fell on a right outstretched arm. She presents to the ED with -- right wrist dinner fork deformity with pain and decreased range of motion. No head injury or any other injury noted. No LOC MD complaint: injury to: right and wrist Onset (ago): hour(s) ( 2 hours ago) Other Extremity Injury: Right: wrist Other injuries: none Place: home Severity: severe Relieving factors: immobilization Exacerbating factors: movement of extremity Context: fall Associated symptoms: denies other symptoms Related Data Home Medications ?Medication ?Instructions ?Recorded ?Confirmed ?Last Taken ?Type atorvastatin 10 mg tablet 10 mg PO DAILY 01/15/20 09/05/21 09/18/21 History vitamin D3-vitamin K2 1 tab-cap PO DAILY 01/15/20 09/05/21 09/18/21 History omega-3 fatty acids 1,000 mg 1,000 mg PO DAILY 09/01/21 09/05/21 09/18/21 History capsule Lactobacillus 1 cap PO DAILY 09/05/21 09/05/21 09/18/21 History acidophilus-Bifidobac.animalis 2.5 billion cell capsule (Daily Probiotic) Allergies Allergy/AdvReac Type Severity Reaction Status Date / Time adhesive Allergy Mild SKIN Verified 02/09/24 13:00 BLISTERS Sulfa (Sulfonamide Allergy Unknown Hives Verified 02/09/24 13:00 Antibiotics) Review of Systems Review of Systems: All systems reviewed & are unremarkable except as noted in HPI and below PMFSH Past Medical History Medical History Fx wrist Fracture, humerus Fracture, ankle Osteoporosis Carotid artery stenosis Chronic idiopathic constipation IBS (irritable bowel syndrome) Adenomatous colon polyp Arthritis GERD (gastroesophageal reflux disease) Hyperlipidemia Surgical History Surgical History H/O cataract removal with insertion of prosthetic lens H/O colonoscopy Family History Family History Father Hypertension Mother Asthma FH: kidney cancer Sibling Alcoholism Grandparent Alcoholism Other Cerebrovascular accident Diabetes mellitus Family history of malignant neoplasm Social History Social History Smoking status: Never smoker Smokeless tobacco user: other Alcohol intake: never Substance use: never Substance use type: does not use Living arrangements: with family Spiritual care concerns: No Exam Narrative: vitals are stable Const: General: healthy appearing and no acute distress Nutritional Appearance: well nourished Orientation/consciousness: patient oriented x3 Limitations: no limitations HENMT: Head: normal to inspection Ears: external ears normal Face/Nose/Sinus: Normal external nose present Face and sinus: normal facial exam Mouth: Yes Normal oral and palatal mucosa present Throat: posterior oropharynx normal Eyes: Conjunctivae: conjunctivae normal Pupils: Equal, round and reactive pupils present EOM: EOMs intact bilaterally Direct Ophthalmoscopy: no photophobia Neck: Neck: normal visual inspection, no lymphadenopathy and no meningeal signs Chest: Chest palpation & inspection: normal inspection of the chest Resp: Effort & Inspection: normal respiratory effort Auscultation: clear to auscultation bilaterally Cardio: Rate: regular rate Rhythm: regular rhythm GI: GI Palp: Yes Soft to palpation Auscultation: normal bowel sounds : General: Yes no CVA tenderness Back/Spine/Pelvis: Back: no CVA tenderness Skin: General skin exam: normal color Rashes: no rashes Wounds: no wounds Neuro: General: patient oriented x3, moves all extremities, no meningeal signs, no focal motor deficits and CN's II-XI intact bilaterally Cranial nerves: Yes Nystagmus not present Speech: normal speech Gait exam (Neuro): Normal gait present Extrem: Other: right wrist dinner fork deformity. Decreased range of motion. Tenderness on palpation of the distal wrist. Psych: Mental Status: mental status grossly normal Affect: normal affect Attitude: cooperative Course Course Emergency Course: Accidental fall on right outstretched arm-- Colles fracture. Placed a colles splint. advised her to monitor distal neurovascular bundle. Will refer her to examine the patient after placement of the splint. Distal neurovascular bundle is intact. Vital Signs Vital signs: Vital Signs Temperature 36.7 C 02/09/24 12:55 Pulse Rate 76 02/09/24 12:55 Respiratory Rate 16 02/09/24 12:55 Blood Pressure 164/82 H 02/09/24 12:55 Pulse Oximetry 98 02/09/24 12:55 Oxygen Delivery Room Air 02/09/24 12:55 Temperature 36.7 C 02/09/24 12:55 Pulse Rate 76 02/09/24 12:55 Respiratory Rate 16 02/09/24 12:55 Blood Pressure 164/82 H 02/09/24 12:55 Pulse Oximetry 98 02/09/24 12:55 Oxygen Delivery Room Air 02/09/24 12:55 MDM - Extremity Injury (Upper) MDM Narrative Medical decision making narrative: accidental fall colles fracture Differential Diagnosis Differential diagnosis: Likely sprain and strain of wrist Lab Data Attestation: I reviewed the patient's lab results. Discharge Plan Discharge Clinical Impression: Colles' fracture Qualifiers: Encounter type: initial encounter Fracture type: closed Laterality: right Qualified Code(s): S52.531A - Colles' fracture of right radius, initial encounter for closed fracture Accidental fall Qualifiers: Encounter type: initial encounter Qualified Code(s): W19.XXXA - Unspecified fall, initial encounter Patient Disposition: Home, Self-Care Condition: Stable Instructions: Antibiotic Form, Wrist Fracture in Adults (ED), Fall Prevention for Older Adults (ED) Patient Language: Belarusian Prescriptions: New hydrocodone-acetaminophen 5-325 mg tablet 1 tablet PO Q8H MDD 3 tabs PRN (Reason: pain) Qty: 14 0RF No Action omega-3 fatty acids 1,000 mg capsule 1,000 mg PO DAILY atorvastatin 10 mg tablet 10 mg PO DAILY vitamin D3-vitamin K2 5,000 UNITS 1 tab-cap PO DAILY Daily Probiotic 2.5 billion cell Capsule 1 cap PO DAILY Follow-up/Referrals: Nick Zelaya MD [Primary Care Provider] - Time of Disposition: 13:35
[2024-02-09 13:54] VITALS: BP 163/84; PULSE 72; RESP 16; O2SAT 97
== END 2024-02-09 14:15 | disposition home or self-care (01) ==
LOC: CHSED 14:02
PROVIDERS: Emergency Provider Internal Medicine Critical Care Medicine; PCP Internal Medicine
DX: S52.531A Colles' fracture of right radius, initial encounter for closed fracture (principal); I25.10 Atherosclerotic heart disease of native coronary artery without angina pectoris; E78.5 Hyperlipidemia, unspecified; W01.0XXA Fall on same level from slipping, tripping and stumbling without subsequent striking against object, initial encounter; Y92.008 Other place in unspecified non-institutional (private) residence as the place of occurrence of the external cause
CPT/HCPCS: 29125; 73110; 99284; A4565

== ENCOUNTER 2024-02-11 03:11 | Day surgery (SDC) | payer MEDICARE, SELFPAY ==
--- NOTE | 2024-02-10 08:26 | PC.NURSE ---
Report to the Outpatient Waiting Room, entrance under the green pavilion located off [facility], at time 1:00 pm on date _02/11/24 . Planned Procedure Time: _3:00 pm .? Time changes happen often and if your time is changed the preop area will call you the afternoon before. - You and your visitor will be asked to self-screen and do not enter if you have any COVID symptoms. Please call surgeon if you need to reschedule. - A mask is optional within the hospital at this time. Patients may have clear liquids (water, carbonated beverages, clear teas, apple juice) until 3 hours prior to surgery( 12 noon) with a maximum of 20 ounces. - No food from midnight until time of surgery and no smoking. This includes no chewing gum, candy or mints. Take only the following medications with a SIP of water on the morning of surgery: _HYDROCODONE IF NEEDED FOR PAIN DO NOT STOP ANY OF YOUR OTHER PRESCRIPTION MEDICATIONS PRIOR TO SURGERY EXCEPT THE FOLLOWING Medications to discontinue per physician __ALL VITAMINS AND SUPPLEMENTS __3 DAYS PRE OP STATES LAST DOSE 02/09/24 Please no make-up, nail turkish, hairspray, perfume, deodorant, or body powder the day of surgery.? No jewelry (including any body piercings) or valuables the day of surgery, leave them at home.? Please take a shower or bath the night before, or the morning of, surgery with an antibacterial soap.? Wear comfortable, loose fitting clothing.? Children are encouraged to wear pajamas. - Jewelry must be removed prior to entering the operating room.? Rings and piercings that are not removed may be cut off. - The hospital will not accept responsibility for valuables.? - Please leave all valuables, including medications, at home the day of surgery. If you are going home after surgery, a licensed boat driver must drive you home.? - NO public transportation without another adult if you receive anesthesia. - We recommend that an adult stay with you for 24 hours following discharge. - We also recommend that you do not drive, make important decision, drink alcoholic beverages, or take any drugs that were not prescribed by your health care provider for at least 24 hours after your discharge time. For Pediatric surgeries, we recommend two adults accompany the child home. Follow any additional instructions given to you from your surgeon. Telephone instructions given to PATIENT_/SPOUSE CLIFF and asked if any additional questions and then verbalized understanding. Patient advised to call surgeon office or pre surgery nurse liaison [phone] if any additional questions.
[2024-02-10 08:53] VITALS: BMI 21.9
[2024-02-11] VITALS (9 sets, daily range): BP systolic 81–143; BP diastolic 45–89; PULSE 57–66; RESP 14–18; TEMP 36.2; O2SAT 96–100
--- NOTE | ~2024-02-11 | XR_ITS ---
EXAMINATION: XR surgery orthopedic DATE: 02/11/2024 14:46 INDICATION: ORIF right wrist fracture TECHNIQUE: 6 fluoroscopic images of the right wrist were obtained during procedure performed by Dr. Nhung taylor. Radiologist was not present for the imaging or procedure. The amount of fluoroscopy time used during this procedure was 0.9 minutes. COMPARISON: 02/10/2024 FINDINGS: Again seen is a comminuted intra-articular fracture of the distal right radius. Interval reduction si gnificantly decrease in the prior dorsal displacement and angulation. The fracture subsequently furth er reduced and internally fixed with a volar T plate and screw fixation at which time the alignment a ppears near-anatomic. An avulsion fracture of the ulnar styloid process is also been reduced to near- anatomic alignment but remains unfixed. 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 IMPRESSION: 1. Near-anatomic alignment post open reduction internal fixation of a comminuted intra-articular frac ture of the distal right radius. 2. Reduction to near anatomic alignment of an unfixed fracture of the ulnar styloid process. Reviewed, dictated and finalized at location A. [facility] IMPRESSION: 1. Near-anatomic alignment post open reduction internal fixation of a comminute d intra-articular fracture of the distal right radius. 2. Reduction to near anatomic alignment of an unfixed fracture of the ulnar sty loid process.
--- NOTE | 2024-02-11 09:38 | WPDHPUPDATE1 ---
History and Physical Update Update Date/Time: 02/11/24 09:38 History and Physical has been reviewed, including an updated exam of the patient. There are NO changes in the patient's condition. Risks, benefits, and alternatives have been discussed and questions answered. Patient agrees to proceed with procedure.
--- NOTE | 2024-02-11 11:45 | ECG_ITS ---
Test Date: 2024-02-11 11:58:12 Measurements Intervals [place] Rate: 63 P: 80 CA: 170 QRS: -52 QRSD: 126 T: 93 QT: 386 QTc: 397 Interpretive Statements SINUS RHYTHM WITH OCCASIONAL SUPRAVENTRICULAR PREMATURE COMPLEXES LEFT AXIS DEVIATION [QRS AXIS < -30] LEFT BUNDLE BRANCH BLOCK [120+ ms QRS DURATION, 80+ ms Q/S IN V1/V2, 85+ ms R IN I/aVL/V5/V6] No previous ECG available for comparison Electronically Signed On 02-11-2024 12:24:28 RAILWAY ENGINEER by Elinor Marx M.D.
[2024-02-11] MEDS: ACETAMINOPHEN 500 MG TABLET 1000 MG PO (12:05)
[2024-02-11] MEDS: LACTATED RINGERS 1,000 ML 30 ML IV CONT ×2 (12:10→15:02)
[2024-02-11] MEDS: KETOROLAC 15 MG/ML VIAL (*BKC) IV PUSH (12:15)
--- NOTE | 2024-02-11 13:15 | P.PNAN_ITS ---
Anes - Initial Pre Proc Eval Procedure: Operation Date: 02/11/24 13:30 Proposed Procedures p Open Reduction Internal Fixation Right Wrist - Abelardo Stacy MD Date/Time: 02/11/24 13:15 Surgeon: Abelardo Stacy MD Pre Op Diagnosis: right wrist fracture Patient Data Age: 78 Gender: F Height: 1.55 m Weight: 51.6 kg Last Vital Signs Temp 36.2 C L 02/11/24 12:10 Pulse 61 02/11/24 12:10 Resp 18 02/11/24 12:10 BP 143/71 H 02/11/24 12:10 Pulse Ox 98 02/11/24 12:10 O2 Del Method Room Air 02/11/24 12:10 Allergies Allergy/AdvReac Type Severity Reaction Status Date / Time adhesive Allergy Mild SKIN Verified 02/11/24 12:54 BLISTERS Sulfa (Sulfonamide Allergy Unknown Hives Verified 02/11/24 12:54 Antibiotics) Home Medications ?Medication ?Instructions ?Recorded ?Confirmed ?Type atorvastatin 10 mg tablet 10 mg PO DAILY 01/15/20 02/10/24 History vitamin D3-vitamin K2 1 tab-cap PO DAILY 01/15/20 02/10/24 History omega-3 fatty acids 1,000 mg 1,000 mg PO DAILY 09/01/21 02/10/24 History capsule Lactobacillus 1 cap PO DAILY 09/05/21 02/10/24 History acidophilus-Bifidobac.animalis 2.5 billion cell capsule (Daily Probiotic) acetaminophen 500 mg tablet 500 mg PO Q4-6H PRN pain 02/10/24 02/11/24 History (Acetaminophen Extra Strength) hydrocodone 5 mg-acetaminophen 325 1 tablet PO Q8H PRN pain #14 tabs 02/11/24 Rx mg tablet ondansetron 8 mg disintegrating 8 mg PO Q8H PRN nausea and 02/11/24 Rx tablet vomiting #10 tabs polyethylene glycol 3350 17 gram 17 g PO DAILY PRN constipation #14 02/11/24 Rx oral powder packet ea sennosides 8.6 mg-docusate sodium 1 tab-cap PO BID PRN constipation 02/11/24 Rx 50 mg tablet (Senna with Docusate #20 tabs Sodium) Patient hx anesthesia problems: none Family hx anesthesia problems: none Results Review: All pre-operative results and documents have been reviewed as part of the pre- operative evaluation. [facility] Past Medical History Medical History Fracture of right distal radius Fx wrist Fracture, humerus Fracture, ankle Osteoporosis Carotid artery stenosis Chronic idiopathic constipation IBS (irritable bowel syndrome) Adenomatous colon polyp Arthritis GERD (gastroesophageal reflux disease) Hyperlipidemia Surgical History Surgical History H/O cataract removal with insertion of prosthetic lens H/O colonoscopy Family History Family History Father Hypertension Mother Asthma FH: kidney cancer Sibling Alcoholism Grandparent Alcoholism Other Cerebrovascular accident Diabetes mellitus Family history of malignant neoplasm Social History Social History Smoking status: Never smoker Smokeless tobacco user: other Alcohol intake: never Substance use: never Substance use type: does not use Living arrangements: with family Spiritual care concerns: No Anes - Eval Final PreProcedure Day of Procedure 02/11/24 13:15 Patient weight: normal Heart: regular rate and rhythm Lungs: clear to auscultation and normal air movement Airway: Mallampati scale class II Neurological: alert and oriented Last oral intake: >/= 8 hours ASA classification: III Emergent: no Anesthetic plan: proceed Anesthesia type and monitoring: general LMA and standard monitoring Results Review: All pre-operative results and documents have been reviewed as part of the pre-operative evaluation. Patient states history of carotid stenosis, no surgical treatment required. Informed Consent: The patient's anesthetic plan and its attendant risks and benefits were discussed with the patient/family/POA. Questions were solicited and answers provided to the satisfaction of the patient/family/POA.
[2024-02-11] MEDS: ceFAZolin 2 GM/D5W 50 ML 2 GM/50 ML BAG IVPB (13:26)
[2024-02-11] MEDS: BUPivacaine HCL 0.5% 10 ML AMP 20 ML INFILTRATE (13:58)
--- NOTE | 2024-02-11 15:19 | P.OP_ITS ---
Procedure Note - Detailed Date of Procedure 02/11/24 Pre-op Diagnosis right wrist fracture Post-op Diagnosis Same Procedure Performed Open reduction internal fixation right distal radius fracture, intra-articular with fixation of greater than 3 fragments. Surgeon Abelardo Stacy MD Advisor [employer] assistant business manager Anesthesia General Indications 78-year-old woman who fell onto her right hand and sustained a right distal radius fracture with comminution and displacement. Patient desires operative treatment. Findings Comminuted intra-articular fracture with multiple fragments of the articular surface. 100 % displacement and angulation noted. Description of Procedure After informed consent the operative extremity was marked in the preoperative holding area. Patient received intravenous antibiotics. Patient taken to the operating room where they underwent general anesthesia. Positioned supine on operating table. Time-out performed confirming the patient, patient's site of surgery and the plan. Right upper extremity prepped and draped in the usual sterile surgical fashion using a ChloraPrep skin solution. Hand and wrist exsanguinated and arm tourniquet inflated to 250 mmHg. Standard volar flexor carpi radialis incision utilized. Fifteen blade knife used to make longitudinal incision. Flexor carpi radialis tendon identified tendon sheath incised in line with skin incision. Tendon retracted to protect the neurovascular elements. Floor of the tendon sheath incised with a 15 blade knife. Flexor pollicis retracted medial. pronator quadratus then divided off the watershed line and reflected ulnarward to expose the distal radius and the fracture. Fracture was then reduced provisionally pinned. Image intensification confirm reduction. Fixation achieved with the distal radius volar plate. This was provisionally pinned into place and confirmed with image intensification. Fixation to the proximal fragment with a 3.5 mm screw. Distal fracture fixation achieved with 2.0 mm locking pegs and 2.0 mm fully threaded locking screws for the radial styloid. Fixation was then completed proximally with the remaining 3.5 mm screws. Final reduction of the fracture, alignment of the wrist joint and placement of the hardware verified with image intensification. Wound thoroughly irrigated with antibiotic solution. Pronator repaired with 3 0 Monocryl interrupted suture. Skin closed with interrupted subcutaneous 000 Monocryl interrupted suture and running 0000 Nylon stitch. Local anesthetic with 0.5% Marcaine. Sterile dressing applied. Padded dressing and splint then applied. Tourniquet released and good capillary refill noted in the fingers and thumb. Patient awoke from anesthesia, extubated and taken to the recovery room in stable condition. All sponge and instrument counts correct at the end of case. [employer] volar locking plate, standard right with 3 proximal screws and 7 distal fixation pegs. Estimated Blood Loss 5 Tourniquet Time Total Tourniquet Time: 70 Drains No Packing No Pathology None sent Complications None Condition Stable Disposition PACU [facility] Billing Surgery - Charge Forward: Surgery Billing ([id number])
== END 2024-02-11 17:01 | disposition home or self-care (01) ==
PROVIDERS: PCP Internal Medicine; Visit Provider Orthopaedic Surgery
PROC: (CPT 25575; principal; 2024-02-11 13:30)
DX: S52.571A Other intraarticular fracture of lower end of right radius, initial encounter for closed fracture (principal); E78.5 Hyperlipidemia, unspecified; M81.0 Age-related osteoporosis without current pathological fracture; K59.04 Chronic idiopathic constipation; K58.9 Irritable bowel syndrome, unspecified; M19.90 Unspecified osteoarthritis, unspecified site; K21.9 Gastro-esophageal reflux disease without esophagitis; W19.XXXA Unspecified fall, initial encounter; Z79.891 Long term (current) use of opiate analgesic; Z98.890 Other specified postprocedural states; Z86.0100 Personal history of colon polyps, unspecified; Z86.79 Personal history of other diseases of the circulatory system; Z80.51 Family history of malignant neoplasm of kidney; Z82.49 Family history of ischemic heart disease and other diseases of the circulatory system
CPT/HCPCS: 25609; 93005; 99199; A9270; C1713; J0690; J1100; J1596; J1885; J1940; J2003; J2405; J2704; J3010; J7120

== ENCOUNTER 2025-01-24 14:44 | Outpatient (CLI) | payer MEDICARE, SELFPAY ==
--- NOTE | ~2025-01-24 | MM_ITS ---
EXAMINATION: MM screening trae BI w jace HISTORY: Screening. TECHNIQUE: Craniocaudal and mediolateral oblique 3-D tomosynthesis images were obtained and synthetic 2-D images were generated. CAD analysis was submitted and interpreted. COMPARISON: 2023, 2022, and 2021 BREAST PARENCHYMAL COMPOSITION: Dense: The breasts are heterogeneously dense FINDINGS: No suspicious masses are seen. There are no suspicious calcifications. No unexplained architectural distortion is seen. There are no skin or nipple abnormalities identified. There is no adenopathy seen on the images submitted. IMPRESSION: No mammographic evidence to suggest malignancy is seen. The patient may return to screening mammography as per ACR guidelines. BI-RADS 1 - Negative. Reviewed, dictated and finalized at location B. ING MACHINE TENDER
--- OUTSIDE RECORDS SUMMARY | 2025-01-24 16:06 | XMS_ITS | Clinical Summary ---
Author Organization [facility] Address [address] [place] [address] Phone Care Team Providers Care Glass Selector Name Role Phone Nick Zelaya MD Primary Care Provider [phone] Social History Tobacco Use Types Packs/Day Years Used Date Smoking Tobacco: Never Assessed Comments No Sex and Gender Information Value Date Recorded Sex Assigned at Not on file Legal Sex Female 7:38 PM CDT Gender Identity Not on file Sexual Orientation Not on file Plan of Treatment Health Maintenance Due Date Last Done Comments Hepatitis C Virus (HCV) Screening 1945 TdaP Immunization 1945 Pneumococcal Immunization (5 0+ years) (1 of 1 - PCV) 11/27/1995 Zoster Immunization (1 of 2) 11/27/1995 Respiratory Syncytial Virus (RSV) Immunization (Adult) (1 - 1-dose 75+ series) 2020 Influenza Immunization (#1) 2024 SARS-COV-2 Immunization ( season) 2024 Mammogram Discontinued 02/28/2016 DEXA Bone Density Discontinued 05/11/2016 Colonoscopy Discontinued 01/24/2020 Colorectal Cancer Screening Discontinued Cologuard Discontinued Hepatitis B Immunization Aged Out No longer eligible based on patient's age to complete this topic Human Papillomavirus (HPV) Immunization Aged Out No longer eligible b ased on patient's age to complete this topic Immunochemical Fecal Occult Blood Discontinued Meningococcal Immunization (ACWY) Aged Out No longer eligible based on patient's age to complete this topic Rotavirus Immunization Aged Out No lo nger eligible based on patient's age to complete this topic Procedures Procedure Name Priority Date/Time Associated Diagnosis Comments COLONOSCOPY Routine 01/24/2020 [facility] BONE DENSITOMETRY AXIAL SKELETON Routine 05/11/2016 8:59 AM CDT Osteopenia, unspecified location [facility] SCREENING BILATERAL DIGITAL W CAD Routine 02/28/2016 3:00 PM INSPECTOR PAWNSHOP DETAIL Encounter for screening mammogram for malignant neoplasm of breast from Last 3 Months or Most Recently Relevant to Health Maintenance Results * COLONOSCOPY (01/24/2020) us Delfin Jose Juan Wallace DO PROCEDURE/MINOR SURGICAL ORDERA BLES Final Result * [facility] BONE DENSITOMETRY AXIAL SKELETON (05/11/2016 8:59 AM CDT) Anatomical Region Laterality Modality BODY N/A Other 05/11/2016 10:0 3 AM CDT Impressions 05/11/2016 10:06 AM CDT IMPRESSION: Low bone mass Bone mineral density: Normal (T-score above or = -1.0) Low bone mass (T-score between -1.0 and -2.5) replaces the previously used term osteopenia Osteoporosis (T-score = or below -2.5) Medical evaluation for secondary causes of low bone mineral density may be appropriate. FRAX is a World Health Organization validated fracture risk assessment tool that calculates a person's 10 year probability of a major osteoporosis related fracture and hip fracture. According to the National Osteoporosis Foundation guidelines, postmenopausal women and men age 50 or older with low bone mass and a 10 year probability of a major osteoporosis related fracture = or greater than 20% or a 10 year probability of a hip fracture = or greater than 3% should be considered for treatment. For further information, including treatment recommendations, please refer to the 2013 ISCD Official Positions (http://www.iscd.org) and the NOF's Clinician's Guide to Prevention and Treatment of Osteoporosis (http://www.nof.org/professionals/clinical-guidelines) Narrative 05/11/2016 10:06 AM CDT EXAMINATION: DXA Bone Density HISTORY: 70 year old female with given history of screening. Current Height: 61 inches Maximum Height: 61.5 inches Weight: 117 pounds RISK FACTORS: Adult fractures from ground-level falls COMPARISON(S): 08/19/2010 BUILDING SERVICES TECHNICIAN/MODEL: Kijubi (S/N [id number]) FINDINGS: AP lumbar spine L1-L4 Total BMD is 0.97 g/dv7D-swgpv is -1.9 Most recent prior BMD was 0.88 g/cm2 There has been a 9.7% increase in BMD which is statistically significant. Left Hip Current Total BMD is 0.76 g/au6I-jrmtl is -2.0 Most recent prior Total BMD was 0.73 g/cm2 There has been a 4.1% increase in BMD which is not statistically significant. Current femoral neck BMD is 0.72 g/me4C-ozuwf is -2.3 Fracture risk assessment (FRAX): 10 year risk for a major osteoporotic fracture is 19.8 % 10 year risk for a hip fracture is 4.7 % The FRAX tool has not been validated in patients currently or previously treated with pharmacotherapy for osteoporosis. In such patients, clinical judgement must be exercised in interpreting FRAX scores as the fracture risk may be overestimated. THIS IS AN ELECTRONICALLY VERIFIED REPORT 05/11/2016 10:03 AM: Yamil Skinner M.D. Radiologist AR:gregory SUZI Procedure Note Chidi Perez MD - 05/11/2016 EXAMINATION: DXA Bone Density HISTORY: 70 year old female with given history of screening. Current Height: 61 inches Maximum Height: 61.5 inches Weight: 117 pounds RISK FACTORS: Adult fractures from ground-level falls COMPARISON(S): 08/19/2010 BUILDING SERVICES TECHNICIAN/MODEL: Kijubi (S/N [id number]) FINDINGS: AP lumbar spine L1-L4 Total BMD is 0.97 g/ms5S-koael is -1.9 Most recent prior BMD was 0.88 g/cm2 There has been a 9.7% increase in BMD which is statistically significant. Left Hip Current Total BMD is 0.76 g/ex2B-woopa is -2.0 Most recent prior Total BMD was 0.73 g/cm2 There has been a 4.1% increase in BMD which is not statistically significant. Current femoral neck BMD is 0.72 g/kw1L-dygyj is -2.3 Fracture risk assessment (FRAX): 10 year risk for a major osteoporotic fracture is 19.8 % 10 year risk for a hip fracture is 4.7 % The FRAX tool has not been validated in patients currently or previously treated with pharmacotherapy for osteoporosis. In such patients, clinical judgement must be exercised in interpreting FRAX scores as the fracture risk may be overestimated. THIS IS AN ELECTRONICALLY VERIFIED REPORT 05/11/2016 10:03 AM: Chidi Perez M.D. Chidi Perez M.D. Radiologist AR:gregory SUZI IMPRESSION: Low bone mass Bone mineral density: Normal (T-score above or = -1.0) Low bone mass (T-score between -1.0 and -2.5) replaces the previously used term osteopenia Osteoporosis (T-score = or below -2.5) Medical evaluation for secondary causes of low bone mineral density may be appropriate. FRAX is a World Health Organization validated fracture risk assessment tool that calculates a person's 10 year probability of a major osteoporosis related fracture and hip fracture. According to the National Osteoporosis Foundation guidelines, postmenopausal women and men age 50 or older with low bone mass and a 10 year probability of a major osteoporosis related fracture = or greater than 20% or a 10 year probability of a hip fracture = or greater than 3% should be considered for treatment. For further information, including treatment recommendations, please refer to the 2013 ISCD Official Positions (http://www.iscd.org) and the NOF's Clinician's Guide to Prevention and Treatment of Osteoporosis (http://www.nof.org/professionals/clinical-guidelines) Nick JACKSON DEXA ORDERABLES Final Resul t * [facility] SCREENING BILATERAL DIGITAL W CAD (02/28/2016 3:00 PM INSPECTOR PAWNSHOP DETAIL) Anatomical Region Laterality Modality breast Bilateral Mammography 02/28/2016 2:48 PM INSPECTOR PAWNSHOP DETAIL Narrative 02/29/2016 8:05 AM INSPECTOR PAWNSHOP DETAIL - [facility]KE SCREENING BILATERAL DIGITAL W CAD BILATERAL DIGITAL SCREENING MAMMOGRAM WITH CAD WITH MEDIOLATERAL OBLIQUE CRANIOCAUDAL: 02/28/2016 The study was acquired using digital technology and interpreted from soft copy. Current study was also evaluated with ICAD version 7.2. CLINICAL: Routine screening. Patient has no complaints. No personal history of cancer. No family history of breast cancer. COMPARISONS: Comparison is made to exams dated: 12/12/2014, 11/17/2013, and 10/25/2012 [facility]. BREAST TISSUE:The tissue of both breasts is extremely dense, which lowers the sensitivity of mammography. FINDINGS: There are benign calcifications in both breasts. No significant masses, calcifications, or other findings are seen in either breast. There has been no significant interval change. IMPRESSION: BI-RAD 2 BENIGN There is no mammographic evidence of malignancy. A 1 year screening mammogram is recommended. The patient has been or will be contacted. The patient will be entered into a reminder system with a target due date of 1 year for her next screening exam. Electronically signed by: Meg vazquez/praveen:02/28/2016 16:08:27 Auto Service Station Attendant: Hilary Garvin(Lucrecia), [facility] letter sent: Normal Exam Reading location: [facility] BI-RADS: 2 Benign Procedure Note Meg Galeano MD - 02/29/2016 - MIKE SCREENING BILATERAL DIGITAL W CAD BILATERAL DIGITAL SCREENING MAMMOGRAM WITH CAD WITH MEDIOLATERAL OBLIQUE CRANIOCAUDAL: 02/28/2016 The study was acquired using digital technology and interpreted from soft copy. Current study was also evaluated with ICAD version 7.2. CLINICAL: Routine screening. Patient has no complaints. No personal history of cancer. No family history of breast cancer. COMPARISONS: Comparison is made to exams dated: 12/12/2014, 11/17/2013, and 10/25/2012 [facility]. BREAST TISSUE:The tissue of both breasts is extremely dense, which lowers the sensitivity of mammography. FINDINGS: There are benign calcifications in both breasts. No significant masses, calcifications, or other findings are seen in either breast. There has been no significant interval change. IMPRESSION: BI-RAD 2 BENIGN There is no mammographic evidence of malignancy. A 1 year screening mammogram is recommended. The patient has been or will be contacted. The patient will be entered into a reminder system with a target due date of 1 year for her next screening exam. Electronically signed by: Meg vazquez/praveen:02/28/2016 16:08:27 Auto Service Station Attendant: Hilary Garvin(R), [facility] letter sent: Normal Exam Reading location: [facility] BI-RADS: 2 Benign Nick Zelaya MD IMG MAMMO ORDERABLES Final Resu lt from Last 3 Months or Most Recently Relevant to Health Maintenance Insurance [employer] Care Teams Glass Selector Relationship Specialty Start Date End Date Nick Zelaya MD [address] [place] [address] PCP - General Internal Medicine 02/27/16
== END 2025-01-24 14:45 | disposition home or self-care (01) ==
LOC: CHSIMG 14:45
PROVIDERS: PCP Internal Medicine; Visit Provider Internal Medicine
DX: Z12.31 Encounter for screening mammogram for malignant neoplasm of breast (principal)
CPT/HCPCS: 77063; 77067